=== PATIENT | female | born 1975 | race Two or more races ===

== ENCOUNTER → 2017-03-16 | Outpatient (CLI) | payer OTHER ==
[~2017-03-16] MED LIST: LEVO50TA5 PO
== END ==
LOC: STAR 08:17
PROVIDERS: ATTEND Specialist
DX: Z02.9 Encounter for administrative examinations, unspecified (principal)

== ENCOUNTER 2017-03-23 13:31 | Day surgery (SDC) | payer OTHER ==
[~2017-03-23] VITALS: Ht 154.9 cm; Wt 80.0 kg
[2017-03-23] MEDS ORDERED: LACTATED RINGERS 1,000 ML IV SCH (13:41)
[2017-03-23 14:28] LABS: HCG UR SG 1.022 (1.003-1.030)
[2017-03-23] MEDS ORDERED: EPINEPHRINE 1 MG/ML, 1ML ONE (14:32)
[2017-03-23] MEDS ORDERED: SILVER NITRATE STICK TP ONE (14:32)
[2017-03-23] MEDS ORDERED: BUPIVACAINE/PF 0.25% ONE (14:32)
[2017-03-23] MEDS ORDERED: VASOPRESSIN 20 UNIT/ML, 1ML ONE (14:36)
[2017-03-23] MEDS ORDERED: LIDOCAINE 1%, 20ML ONE (14:36)
[2017-03-23] MEDS ORDERED: MIDAZOLAM 1 MG/ML, 2ML ONE (14:41)
[2017-03-23] MEDS ORDERED: FENTANYL PF 250 MCG/5ML ONE (14:42)
[2017-03-23] MEDS ORDERED: KETOROLAC 30 MG/1 ML ONE (14:43)
[2017-03-23] MEDS ORDERED: DEXAMETHASONE 4 MG/ML, 1ML ONE ×2 (14:43)
[2017-03-23] MEDS ORDERED: PROPOFOL 10 MG/ML, 20ML ONE (14:43)
[2017-03-23] MEDS ORDERED: ONDANSETRON 2MG/ML, 2ML ONE (14:43)
[2017-03-23] MEDS ORDERED: LABETALOL 5MG/ML, 20ML IV PRN (15:00)
[2017-03-23] MEDS ORDERED: PROMETHAZINE 25 MG/ML, 1ML IV PRN (15:00)
[2017-03-23] MEDS ORDERED: ONDANSETRON 2MG/ML, 2ML IVPush PRN (15:00)
[2017-03-23] MEDS ORDERED: hydrALAzine 20 MG/ML, 1ML IV PRN (15:00)
[2017-03-23] MEDS ORDERED: OXYcodone 5 MG/5 ML ORAL.SOL UDC PO PRN (15:00)
[2017-03-23] MEDS ORDERED: MEPERIDINE/PF 25MG/0.5ML IVPush PRN (15:00)
[2017-03-23] MEDS ORDERED: HYDROmorphone 1 MG/ML, 1ML IV PRN (15:00)
[2017-03-23] MEDS ORDERED: ACETAMINOPHEN 325 MG TABLET PO PRN (15:00)
[2017-03-23] MEDS ORDERED: LABETALOL 5MG/ML, 20ML ONE (15:57)
[2017-03-23] MEDS ORDERED: FENTANYL PF 100 MCG/2ML ONE (15:57)
[2017-03-23] MEDS: FENTANYL PF 100 MCG/2ML IV PRN ×2 (16:00→16:05)
[2017-03-23] MEDS ORDERED: ACETAMINOPHEN 650 MG/20.3 ML UDC ONE (16:09)
[2017-03-23] MEDS ORDERED: OXYcodone 5 MG/5 ML ORAL.SOL UDC ONE (16:10)
== END 2017-03-23 18:50 ==
LOC: OR 13:31
PROVIDERS: ATTEND Specialist
DX: N93.9 Abnormal uterine and vaginal bleeding, unspecified (principal); Q51.2 Other doubling of uterus; N85.8 Other specified noninflammatory disorders of uterus; N84.0 Polyp of corpus uteri; N85.00 Endometrial hyperplasia, unspecified; E03.9 Hypothyroidism, unspecified
CPT/HCPCS: 58558; 58560; 81025; 88305; J1100; J1885; J2250; J2405; J2704; J3010; J7120; J0171; J3490